=== PATIENT | male | born 1995 | race Caucasian/White ===

== ENCOUNTER 2016-11-08 01:26 | Emergency (ER) | payer MEDICAID ==
[2016-11-08] MEDS ORDERED: TETANUS/DIPHTHERIA/PERTUSSIS 0.5 ML SYRINGE IM ONE ×2 (02:26→02:36)
[2016-11-08] MEDS ORDERED: LIDOCAINE 1% 50 ML MDV SUBQ STA (02:27)
[2016-11-08] MEDS ORDERED: LIDOCAINE-MPF 1% 5 ML VIAL ONE (02:50)
[2016-11-08] MEDS ORDERED: BACITRACIN OINT TOP STA (04:30)
== END 2016-11-08 04:43 | disposition home or self-care (01) ==
DX: S61.210A Laceration without foreign body of right index finger without damage to nail, initial encounter (principal); W45.8XXA Other foreign body or object entering through skin, initial encounter; Z23 Encounter for immunization; F17.200 Nicotine dependence, unspecified, uncomplicated